=== PATIENT | female | born 1960 | race Caucasian/White ===

== ENCOUNTER 2017-06-28 18:12 | Inpatient (IN) ==
--- NOTE | 2017-06-28 18:26 | Emergency Department Report ---
Overdose HPI - General Stated Complaint: OD Time Seen by Provider: 06/28/17 18:18 Source: family, EMS Mode of arrival: EMS Limitations: no limitations - History of Present Illness HPI Narrative: EMS was activated in [place] for patient was found semi-responsive upstairs at her home. Her significant other went upstairs, its in certain how long it had been since he had seen her, but the patient was slurring her words, confused , needed assistance to walk. At some point the patient apparently got down to the bottom of the stairs, again it's uncertain if she walked or if her significant other help her down the stairs, but he she apparently collapsed there. EMS found the patient essentially unresponsive to all but deep painful stimuli and at the base of the stairs wrapped in a small comforter. Patient's prescription for alprazolam 1 mg tablets was found in her room, an empty bottle of 45 tablets, that was filled on 06/26. Patient gave no indication of suicidal ideation, and her significant other is not present. Would give any further information. Patient was found to be deeply somnolent, having an absence of gag reflex, and tolerated a nasal trumpet without difficulty. Initial O2 saturations were 93% on room air, however as the patient progressed she continued to have decreased O2 saturations and required nonrebreather mask O2 supplement. Unknown whether the patient took any nonprescription medications or street drugs , or any alcohol tonight. Therefore no Romazicon was given in route. She has no primary care physician, has been seen at [facility] and sees Belia Cat NP. Diagnoses include major depression, generalized anxiety disorder, and possible - Related Data Home Medications Medication Instructions Recorded Confirmed ALPRAZolam [Xanax] 1 mg PO BID 06/28/17 06/28/17 Escitalopram [Lexapro] 20 mg PO DAILY 06/28/17 06/28/17 Mirtazapine [Remeron] 30 mg PO HS 06/28/17 06/28/17 Trazodone [Desyrel] 300 mg PO HS 06/28/17 06/28/17 Allergies Allergy/AdvReac Type Severity Reaction Status Date / Time No Known Allergies Allergy Verified 06/28/17 19:36 PFSH Major depressive disorder Anxiety Physical Exam - Limitations Limitations: altered mental status - General General appearance: obtunded - Normal Exams: Head:: Normocephalic without trauma Eyes:: Pupils are PERRLA w/ EOMI, No scleral icterus, irritation, or foreign bodies noted ENMT:: No facial trauma, nasal exudates, pharyngeal erythema, or exudates are noted Neck:: Full range of motion, without adenopathy, JVD, bruits or thyromegaly Chest/Respirations:: Clear all gaviria, with good airflow, and symmetry bilaterally Cardiovascular:: Regular rate and rhythm, without murmur or gallop, Pulses 2+ all extremities, capillary refill, <2 seconds all extremities Abdomen:: Bowel sounds positive, soft, non-tender, non-distended, no hepatosplenomegaly, masses or bruits noted Lymphatic:: No lymphadenopathy, or lymphedema noted Musculoskeletal:: No tenderness, or deformity noted, good range of motion, all extremities Integumentary:: No rashes, hives, or bruising noted, hair and nails, without abnormality - Eye Eye exam: Present: other (pinpoint pupils) - Neurological Exam Neurological exam: Present: other (send his obtunded, responds to brennan tapping on the 4 head and painful stimuli only) - Psychiatric Psychiatric exam: Present: other (patient is obtunded, and unable to cooperate with neurologic or psychiatric exam) Course Vital Signs Temperature 97.7 F 06/28/17 18:15 Pulse Rate 94 06/28/17 18:15 Respiratory Rate 20 06/28/17 18:15 Blood Pressure 115/73 06/28/17 18:15 Pulse Oximetry 93 06/28/17 18:15 Temperature 97.7 F 06/28/17 18:15 Pulse Rate 80 06/28/17 19:30 Respiratory Rate 26 H 06/28/17 18:45 Blood Pressure 102/71 06/28/17 19:30 Pulse Oximetry 96 06/28/17 19:30 Overdose - MDM Narrative Medical decision making narrative: EKG - normal sinus rhythm without ischemic, ectopy, or infarction. Patient does have blunted T waves, but no other ischemic changes CBC - normal CMP - normal CT head/C-spine - no acute findings, patient does have areas of decreased attenuation within the frontal lobes that are suspicious for small bilateral frontal lobe infarcts, age undetermined. She has no acute findings that would indicate acute stroke, no edema, no bleed EtOH - n UDS - benzos only Tylenol/salicylates - n Patient has been maintaining her O2 saturations well on 2 L nasal cannula, has been managing her secretions without difficulty, and appears to be stable with blood pressure pulse and saturations normal. Patient is discussed with Dr. Aaron, will admit to ICU for benzodiazepine overdose - Lab Data Result diagrams: 06/28/17 18:49 06/28/17 18:49 Lab Results 06/28/17 06/28/17 06/28/17 Range/Units 18:37 18:49 18:49 WBC 7.9 (4.5-11.0) T/MM3 RBC 4.60 (4.00-5.20) M/MM3 Hgb 14.8 (12-16) GM/DL Hct 43.9 (36-46) % MCV 95.4 (80-100) UM3 MCH 32.2 (26-34) UUG MCHC 33.7 (31-37) GM/DL RDW Std Deviation 41.3 (36.9-50.2) FL Plt Count 229 (130-400) T/MM3 MPV 9.1 L (9.4-12.4) UM3 Immature Gran % (Auto) 0.1 (0.0-0.5) % Neut % (Auto) 48.3 (33-66) % Lymph % (Auto) 43.7 (23-45) % Crowley % (Auto) 5.9 (0-9.0) % Eos % (Auto) 1.5 (0-4) % Baso % (Auto) 0.5 (0-2) % Neut # (Auto) 3.8 (1.8-7.7) T/MM3 Lymph # (Auto) 3.5 (1-4.8) T/MM3 Crowley # (Auto) 0.5 (0-0.8) T/MM3 Eos # (Auto) 0.1 (0-0.5) T/MM3 Baso # (Auto) 0.0 (0-0.2) T/MM3 Abs Immat Gran (auto) 0.01 (0.00-0.03) T/MM3 Turbidity < 20 (0-20) Sodium 146 H (134-144) MEQ/L Potassium 3.6 (3.6-5) MEQ/L Chloride 108 H (98-107) MEQ/L Carbon Dioxide 30 (22-30) MEQ/L Anion Gap 8 (5-15) MEQ/L BUN 10.0 (7-17) MG/DL Creatinine 0.7 (0.7-1.2) MG/DL GFR Calculation 86 BUN/Creatinine Ratio 14 (6-26) RATIO Glucose 75 (65-110) MG/DL Calculated Osmolality 279 (261-280) MOSM/KG Calcium 9.5 (8.4-10.2) MG/DL Total Bilirubin 0.70 (0.20-1.30) MG/DL Icterus Index < 2 (0-7) AST 22 (14-36) U/L ALT 33 (9-52) U/L Alkaline Phosphatase 82 (38-126) U/L Total Protein 7.1 (6.3-8.2) G/DL Albumin 4.2 (3.5-5.0) G/DL Globulin 2.9 (2.4-3.6) G/DL Albumin/Globulin Ratio 1.4 (1.1-2.2) RATIO Plasma Lactate 1.8 (0.6-2.2) MMOL/L Specimen Hemolysis < 15 (0-25) Ur Collection Type Urine, catheter Urine Color Yellow (YELLOW) Urine Clarity Clear Urine pH 6.0 (5.0-8.0) Ur Specific Whitlash <=1.005 L (1.015-1.025) Urine Protein Negative (NEGATIVE) Urine Glucose (UA) Negative (NEGATIVE) Urine Ketones Negative (NEGATIVE) Urine Occult Blood Negative (NEGATIVE) Urine Nitrate Negative (NEGATIVE) Urine Bilirubin Negative (NEGATIVE) Urine Urobilinogen 0.2 (NORMAL) EU/DL Ur Leukocyte Esterase Negative (NEGATIVE) Urinalysis Comment Microscopic not ind. Salicylates < 1.0 L (2-20) MG/DL Urine Opiates Screen ng/mL Ur Oxycodone Screen ng/mL Urine Methadone Screen ng/mL Ur Propoxyphene Screen ng/mL Acetaminophen < 10 L (10-30) UG/ML Ur Barbiturates Screen ng/mL U Tricyclic Antidepress ng/mL Ur Phencyclidine Scrn ng/mL Ur Amphetamines Screen ng/mL U Methamphetamines Scrn ng/mL U Benzodiazepines Scrn ng/mL Urine Cocaine Screen ng/mL U Cannabinoids Screen ng/mL Ur Drug Screen Confirm Alcohol, Quantitative 84 (<10) MG/DL 06/28/17 06/28/17 Range/Units 18:49 18:49 WBC (4.5-11.0) T/MM3 RBC (4.00-5.20) M/MM3 Hgb (12-16) GM/DL Hct (36-46) % MCV (80-100) UM3 MCH (26-34) UUG MCHC (31-37) GM/DL RDW Std Deviation (36.9-50.2) FL Plt Count (130-400) T/MM3 MPV (9.4-12.4) UM3 Immature Gran % (Auto) (0.0-0.5) % Neut % (Auto) (33-66) % Lymph % (Auto) (23-45) % Crowley % (Auto) (0-9.0) % Eos % (Auto) (0-4) % Baso % (Auto) (0-2) % Neut # (Auto) (1.8-7.7) T/MM3 Lymph # (Auto) (1-4.8) T/MM3 Crowley # (Auto) (0-0.8) T/MM3 Eos # (Auto) (0-0.5) T/MM3 Baso # (Auto) (0-0.2) T/MM3 Abs Immat Gran (auto) (0.00-0.03) T/MM3 Turbidity (0-20) Sodium (134-144) MEQ/L Potassium (3.6-5) MEQ/L Chloride (98-107) MEQ/L Carbon Dioxide (22-30) MEQ/L Anion Gap (5-15) MEQ/L BUN (7-17) MG/DL Creatinine (0.7-1.2) MG/DL GFR Calculation BUN/Creatinine Ratio (6-26) RATIO Glucose (65-110) MG/DL Calculated Osmolality (261-280) MOSM/KG Calcium (8.4-10.2) MG/DL Total Bilirubin (0.20-1.30) MG/DL Icterus Index (0-7) AST (14-36) U/L ALT (9-52) U/L Alkaline Phosphatase (38-126) U/L Total Protein (6.3-8.2) G/DL Albumin (3.5-5.0) G/DL Globulin (2.4-3.6) G/DL Albumin/Globulin Ratio (1.1-2.2) RATIO Plasma Lactate (0.6-2.2) MMOL/L Specimen Hemolysis (0-25) Ur Collection Type Urine Color (YELLOW) Urine Clarity Urine pH (5.0-8.0) Ur Specific Whitlash (1.015-1.025) Urine Protein (NEGATIVE) Urine Glucose (UA) (NEGATIVE) Urine Ketones (NEGATIVE) Urine Occult Blood (NEGATIVE) Urine Nitrate (NEGATIVE) Urine Bilirubin (NEGATIVE) Urine Urobilinogen (NORMAL) EU/DL Ur Leukocyte Esterase (NEGATIVE) Urinalysis Comment Salicylates (2-20) MG/DL Urine Opiates Screen Negative ng/mL Ur Oxycodone Screen Negative ng/mL Urine Methadone Screen Negative ng/mL Ur Propoxyphene Screen Negative ng/mL Acetaminophen (10-30) UG/ML Ur Barbiturates Screen Negative ng/mL U Tricyclic Antidepress Negative ng/mL Ur Phencyclidine Scrn Negative ng/mL Ur Amphetamines Screen Negative ng/mL U Methamphetamines Scrn Negative ng/mL U Benzodiazepines Scrn Positive ng/mL Urine Cocaine Screen Negative ng/mL U Cannabinoids Screen Negative ng/mL Ur Drug Screen Confirm Sent out Alcohol, Quantitative (<10) MG/DL Critical Care Time Critical Care Time: Yes Total Critical Care Time: 35 Attestation: She required aggressive diagnostics and close monitoring for severe somnolence secondary to overdose and possible trauma. Patient remained essentially unresponsive throughout the ER course. Disposition Clinical Impression: Benzodiazepine overdose Qualifiers: Encounter type: initial encounter Injury intent: undetermined intent Qualified Code(s): T42.4X4A - Poisoning by benzodiazepines, undetermined, initial encounter Disposition: 02 To [facility] Condition: Improved Prescriptions: No Action Mirtazapine [Remeron] 30 mg PO HS Escitalopram [Lexapro] 20 mg PO DAILY ALPRAZolam [Xanax] 1 mg PO BID Trazodone [Desyrel] 300 mg PO HS - Seen By: physician
--- OUTSIDE RECORDS SUMMARY | 2017-06-28 18:39 | External Medical Summary ---
:1960 Author Organization [facility]. Summary purpose CCDA Sent to [facility] Chief Complaint and Reason for Visit Admit Diagnosis 1 K92.0 Problem list No authorized problems tracked for continuity of care are available for this visit. Encounters No authorized problems tracked for encounter diagnoses are available for this visit. Medications No medications recorded for this patient visit Allergies, adverse reactions, alerts No allergy information is available for this patient. Immunizations No immunizations recorded for this patient visit Relevant diagnostic tests and/or laboratory data No authorized results are available for this patient visit History of procedures No procedures recorded for this patient visit. Functional status No functional or cognitive status observations are available for this visit. Vital signs No authorized vital signs are available for this visit. Social history No Social History or smoking status observations were recorded for this visit. ( Unknown if ever smoked.) Treatment Plan No treatment plan text is available for this visit. Hospital discharge instructions No discharge instruction text is available for this visit.
[2017-06-28] MEDS ORDERED: ONDANSETRON 4 MG/2 ML INJECTION IVP PRN (21:05)
[2017-06-28 21:16] VITALS: BMI 27.8
--- NOTE | 2017-06-28 21:22 | History & Physical Report ---
History of Present Illness Date: 06/28/17 Chief complaint: none by patient. suspected overdose by friend HPI: Please note that the patient was seen via telemedicine with nursing assistance on 06/28/2017 Ms. Lee is a 57yo woman with h/o MDD and loss of fiance approximately 10 months ago. Per friend to ED staff depressed since with medication changes. Was found less responsive and confused. Was wrapped in a blanket and taken downstairs after 1600. Once became more somnolent EMS was called. Noted bottles of antidepressants and empty bottle of 1mg Alprazolam #45 filled 2016. Patient is now confused and somnolent. Will open eyes and is agitated at times wanting to pull at tucker catheter thinking that she needs to urinate. She will not appropriately answer orientation questions or question re pain or nausea. Review of Systems ROS unobtainable: due to mental status Past Medical History Medical History Updates: major depression and anxiety Surgical History: lives with roommate. drinks alcohol based on labs. Family History Updates: not possible to obtain - Social History Smoking status: Unknown if ever smoked Medications Home Medications Medication Instructions Recorded Confirmed Type ALPRAZolam [Xanax] 1 mg PO BID 06/28/17 06/28/17 History Escitalopram [Lexapro] 20 mg PO DAILY 06/28/17 06/28/17 History Mirtazapine [Remeron] 30 mg PO HS 06/28/17 06/28/17 History Trazodone [Desyrel] 300 mg PO HS 06/28/17 06/28/17 History Allergies Allergy/AdvReac Type Severity Reaction Status Date / Time No Known Allergies Allergy Verified 06/28/17 19:36 Exam Vital Signs: Temperature 97.7 F 06/28/17 18:15 Pulse Rate 90 06/28/17 21:15 Respiratory Rate 47 H 06/28/17 21:15 Blood Pressure 136/64 06/28/17 21:10 Pulse Oximetry 97 06/28/17 21:15 Telemetry Rhythm: Sinus Rhythm Height/Weight/BMI: Height 1.68 m Weight 78.1 kg Body Mass Index 27.8 - Constitutional Present: mild distress - Routine HEENT Exam Head: Present: normocephalic Eye: Present: EOMI Comments: pupils still pinpoint - Routine Neck Exam Present: full ROM - Routine Respiratory Exam Present: CTA bilaterally. Absent: accessory muscle use - Routine Cardiovascular Exam Present: RRR, S1, S2 - Routine Abdominal Exam Present: soft, normoactive bowel sounds - Routine Extremities Exam Present: no edema. Absent: clubbing, edema - Routine Back/Spine/Pelvis Exam Back/Spine: Present: full ROM - Routine Neurological Exam alert currently and agitated, symmetric movement. Results - Labs CBC & Chem 7: 06/28/17 18:49 06/28/17 18:49 Assessment and Plan (1) Major depress dis, severe Current visit: Yes Status: Acute (2) Hypernatremia Current visit: Yes Status: Acute (3) Benzodiazepine overdose Current visit: Yes Status: Acute Assessment and Plan: 1. Polysubstance overdose presumed benzodiazepine, ethanol, and possibly other with toxic encephalopathy--ICU full admit with tele and AM repeat EKG with no Qt prolongation currently. IVF and supportive care. Additional hx once oriented. 2. Major depression and anxiety with reported of fiance at the beginning of the year. 3. Hypernatremia likely dehydration. LR and recheck. 4. Polysubstance abuse. DVT Prophylaxis: SCD's - Physician Narrative Narrative: Date: 06/28/17 Time: 2118 Hospital Course Summary Disclaimer: The visit summary below is not to be considered part of the above Progress Note.
[2017-06-28] MEDS: HALOPERIDOL 5 MG/ML INJECTION IVP PRN (21:32)
[2017-06-28] MEDS: LR 1,000 ML IV SCH (21:40)
[2017-06-29] MEDS: LR 1,000 ML IV SCH ×2 (08:05→18:33)
[2017-06-29] MEDS: ENOXAPARIN 40 MG/0.4 ML INJECTION SQ SCH (10:45)
[2017-06-29] MEDS: HALOPERIDOL 5 MG/ML INJECTION IVP PRN (11:02)
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
--- NOTE | 2017-06-29 13:44 | History & Physical Report ---
History of Present Illness Date: 06/29/17 HPI: Overnight HPI Please note that the patient was seen via telemedicine with nursing assistance on 06/28/2017 Ms. Lee is a 57yo woman with h/o MDD and loss of fiance approximately 10 months ago. Per friend to ED staff depressed since with medication changes. Was found less responsive and confused. Was wrapped in a blanket and taken downstairs after 1600. Once became more somnolent EMS was called. Noted bottles of antidepressants and empty bottle of 1mg Alprazolam #45 filled 2016. Patient is now confused and somnolent. Will open eyes and is agitated at times wanting to pull at tucker catheter thinking that she needs to urinate. She will not appropriately answer orientation questions or question re pain or nausea. Follow up HPI Pt presented to ED after overdosing on 45 xanax. Pt is sleepy and not able to provide complete hx but does report she was trying to "see Minesh." Pt is oriented to persona and time. Pt denies any n/v/d, f/c, cp or sob. Pt denies any pain anywhere. Pt is hungry and would like to eat. For complete info please see previous H&P for PMH, SH, FH, and ROS. Past Medical History Medical History Updates: major depression and anxiety Surgical History: lives with roommate. drinks alcohol based on labs. Family History Updates: Reviewed - Social History Smoking status: Unknown if ever smoked Medications Home Medications Medication Instructions Recorded Confirmed Type ALPRAZolam [Xanax] 1 mg PO BID 06/28/17 06/28/17 History Escitalopram [Lexapro] 20 mg PO DAILY 06/28/17 06/28/17 History Mirtazapine [Remeron] 30 mg PO HS 06/28/17 06/28/17 History Trazodone [Desyrel] 300 mg PO HS 06/28/17 06/28/17 History Allergies Allergy/AdvReac Type Severity Reaction Status Date / Time No Known Allergies Allergy Verified 06/28/17 19:36 Exam Vital Signs: Temperature 97.7 F 06/29/17 12:00 Pulse Rate 85 06/29/17 12:00 Respiratory Rate 24 06/29/17 12:00 Blood Pressure 134/72 06/29/17 12:00 Pulse Oximetry 97 06/29/17 12:00 Height/Weight/BMI: Height 5 ft 6 in Weight 78.1 kg Body Mass Index 27.8 - Constitutional Present: no acute distress, somnolent - Routine HEENT Exam Head: Present: normocephalic, atraumatic Eye: Present: EOMI, PERRL ENT: Present: mucous membranes moist - Routine Respiratory Exam Present: accessory muscle use - Routine Cardiovascular Exam Present: RRR, no murmur - Routine Abdominal Exam Present: soft, non distended, non tender - Routine Extremities Exam Present: no edema. Absent: cyanosis, clubbing - Routine Back/Spine/Pelvis Exam Back/Spine: Present: full ROM - Routine Skin Exam Present: intact, dry. Absent: cyanosis, erythema - Routine Neurological Exam Present: alert Results - Labs CBC & Chem 7: 06/28/17 18:49 06/29/17 05:04 Assessment and Plan (1) Benzodiazepine overdose Current visit: Yes Status: Acute (2) Major depress dis, severe Current visit: Yes Status: Acute (3) Hypernatremia Current visit: Yes Status: Acute Assessment and Plan: Benzo OD -Pt reports xanax x45 pills -Pt stable, will do symptomatic tx and monitor now -salicylate/acetaminophen negative, UDS + benzo but otherwise unremarkable Suicide Attempt -Consult psych, pt will likely need inpt tx Depression/Anxiety -Hold home escitalopram, xanax, mitazapine, trazodone Ppx -SCD - Physician Narrative Narrative: Date: 06/29/17 Time: 1339 Hospital Course Summary Disclaimer: The visit summary below is not to be considered part of the above Progress Note.
--- NOTE | 2017-06-29 22:09 | CT Scan Report ---
Indication: unresponsiveness PROCEDURE: CT head/brain wo con: Encounter: Initial Comparison: None Technique: Axial CT images through the head were performed without contrast. Iterative Reconstruction dose reducing technique was utilized. FINDINGS: The ventricles are of normal size, shape, and contour for the patient's age. There are scattered areas of low attenuation in the white matter which most likely represent changes from chronic microvascular ischemia. Slightly more focal areas of low attenuation within the frontal lobes. The brainstem, cerebellum, and cerebral hemispheres otherwise have a normal morphology and CT attenuation. There is no evidence of midline displacement. No hemorrhage, signs of acute territorial stroke, mass effect, mass lesions, or edema is evident. The visualized portions of the skull base, midface, and calvarium demonstrate no abnormality. Left sphenoid sinus is completely opacified. The tympanic and mastoid cavities appear normal. IMPRESSION: 1. No acute intracranial hemorrhage. 2. Low attenuation regions in both frontal lobes that could represent areas of beam hardening artifact or potentially acute, subacute or chronic ischemia. MRI could be performed for further evaluation. 3. Acute left sphenoid sinusitis. .
--- NOTE | 2017-06-29 22:11 | CT Scan Report ---
Indication: uresponsiveness PROCEDURE: CT cervical spine wo con: Encounter: Initial Comparison: None Technique: Axial CT images through the cervical spine were performed without contrast. Coronal and sagittal reformatted images were also obtained. Automated Exposure Control and Iterative Reconstruction dose reducing techniques were utilized. FINDINGS: Motion artifact occludes adequate evaluation of the upper thoracic spine. The alignment of the cervical spine is normal. Multilevel degenerative changes are present. There is no evidence of acute fracture or subluxation of the cervical spine. The atlantoaxial articulation, dens, and upper cervical spine demonstrate no subluxation. The paraspinal soft tissues and spinal canal appear unremarkable. IMPRESSION: No acute traumatic abnormality of the cervical spine. There is a preliminary report by virtual radiologic. .
[2017-06-30] MEDS ORDERED: ACETAMINOPHEN 500 MG TABLET PO PRN (04:47)
[2017-06-30] MEDS: HALOPERIDOL 5 MG/ML INJECTION IVP PRN ×2 (05:01→09:46)
[2017-06-30] MEDS: LR 1,000 ML IV SCH ×2 (05:35→13:17)
[2017-06-30] MEDS: NICOTINE 14 MG PATCH TD PRN ×2 (05:35→09:21)
[2017-06-30] MEDS ORDERED: NICOTINE PATCH REMOVAL TD PRN (06:12)
[2017-06-30] MEDS ORDERED: INFLUENZA VAC QIV 2017-18 (Fluarix*)(>=3yo) 0.5ml IM ONE (09:00)
[2017-06-30] MEDS: ENOXAPARIN 40 MG/0.4 ML INJECTION SQ SCH (09:21)
--- NOTE | 2017-06-30 11:46 | Discharge Summary ---
Discharge Information Date of admission: 06/28/17 19:57 Anticipated date of discharge: 06/30/17 Attending Physician: Robyn Jacob MD - Discharge Diagnosis (1) Benzodiazepine overdose Status: Acute (2) Major depress dis, severe Status: Acute (3) Hypernatremia Status: Acute - Laboratory Labs: 06/30/17 04:36 06/30/17 04:36 History of Present Illness HPI: Overnight HPI Please note that the patient was seen via telemedicine with nursing assistance on 06/28/2017 Ms. Lee is a 57yo woman with h/o MDD and loss of fiance approximately 10 months ago. Per friend to ED staff depressed since with medication changes. Was found less responsive and confused. Was wrapped in a blanket and taken downstairs after 1600. Once became more somnolent EMS was called. Noted bottles of antidepressants and empty bottle of 1mg Alprazolam #45 filled 2016. Patient is now confused and somnolent. Will open eyes and is agitated at times wanting to pull at tucker catheter thinking that she needs to urinate. She will not appropriately answer orientation questions or question re pain or nausea. Follow up HPI Pt presented to ED after overdosing on 45 xanax. Pt is sleepy and not able to provide complete hx but does report she was trying to "see Minesh." Pt is oriented to persona and time. Pt denies any n/v/d, f/c, cp or sob. Pt denies any pain anywhere. Pt is hungry and would like to eat. For complete info please see previous H&P for PMH, SH, FH, and ROS. Objective Vital signs: Temperature 97.1 F 06/30/17 08:00 Pulse Rate 77 06/30/17 08:00 Respiratory Rate 23 06/30/17 08:00 Blood Pressure 118/84 06/30/17 08:00 Pulse Oximetry 94 06/30/17 08:00 Height/Weight/BMI: Height 5 ft 6 in Weight 78.8 kg Body Mass Index 27.8 - Constitutional Present: no acute distress - Routine HEENT Exam Head: Present: normocephalic, atraumatic Eye: Present: EOMI, PERRL - Routine Respiratory Exam Present: CTA bilaterally. Absent: wheezes, crackles - Routine Cardiovascular Exam Present: RRR, no murmur - Routine Abdominal Exam Present: soft, non distended, non tender - Routine Extremities Exam Present: no edema. Absent: cyanosis, clubbing - Routine Skin Exam Present: intact, dry. Absent: erythema - Routine Neurological Exam Present: alert, oriented X3 - Routine Psychiatric Exam Present: normal affect Hospital Course This is a general summary of the patient's hospital course. For more details refer to the complete medical record. Discharge Summary: Pt was admitted d/t taking 45 pills of 2mg xanax pills in an attempt to take her life. Pt has hx of Depression and anxiety and about 1 yr ago her fiance and she reported that has been difficult to deal with. Pt did well with supportive treatment and was back to baseline at discharge. Pt was evaluated by psych and they recommended inpt treatment. Pt agreed to voluntary psych inpt treatment so plan was made to transfer pt to [facility] for [facility]pt psych treatment. Notable Testing: CT head negative Cervical Spine negative UDS Positive for benzo Discharge Plan - Discharge Disposition Disposition: 65 To Psych Hosp/Unit *Condition: Improved Reason For Visit (Visit label in EMR): benzodiazepine overdose - Discharge Medications *Discharge Medications: Continue Mirtazapine [Remeron] 30 mg PO HS Escitalopram [Lexapro] 20 mg PO DAILY Discontinued ALPRAZolam [Xanax] 1 mg PO BID Trazodone [Desyrel] 300 mg PO HS - Discharge Packet/Instructions *Diet: Regular *Activity: As tolerated *Pending Lab/Results: No Pending Lab - Referrals/Follow Up - Patient Handouts - Dismissal Complete Discharge Instructions are:: Complete Physician Narrative - Narrative Attestation Narrative: Date: 06/30/17 Time: [id number]
[2017-06-30 12:07] VITALS: BP 120/78; PULSE 90; RESP 19; TEMP 98; O2SAT 95
[2017-06-30] MEDS ORDERED: LORazepam 2 MG TABLET PO ONE (12:44)
[2017-06-30] MEDS ORDERED: INFLUENZA VAC. INJ. ADMIN CHARGE INJ ONE (13:11)
== END 2017-06-30 13:12 | DRG 917 ==
LOC: ED 18:12 → CCU 19:57
PROVIDERS: ADMIT Hospitalist; ATTEND Internal Medicine